=== PATIENT | female | born 1975 | race Caucasian/White ===

== ENCOUNTER 2017-03-19 10:19 | Emergency (ER) | payer MEDICAID ==
[~2017-03-19] VITALS: Ht 175.3 cm; Wt 85.0 kg
[~2017-03-19 10:19] MED LIST: FLAG500T PO; LORA10TA PO; Z.0.NO CURRENT MEDS; [UNRECOGNIZED DRUG - CODE] PO
[2017-03-19 10:21] VITALS: BP 143/93; PULSE 94; RESP 20; TEMP 97.9; O2SAT 95
[2017-03-19] MEDS ORDERED: FLUORESCEIN SOD 1 MG STRIP LEFT EYE ONE (10:30)
[2017-03-19] MEDS ORDERED: PROPARACAINE HCL 0.5% OPHT SOLN 15 ML BTL LEFT EYE ONE (10:30)
[2017-03-19] MEDS ORDERED: ERYTOIN10 LEFT EYE (10:48)
[2017-03-19] MEDS ORDERED: IBUP-232 PO (10:48)
--- NOTE | 2017-03-19 10:53 | PD ---
HPI Chief Complaint: Eye Problems/Injury Time Seen by Provider: 10:48 Travel History International Travel<30 days: No Contact w/Intl Traveler<30days: No Traveled to known affect area: No History of Present Illness HPI 41-year-old Nepalese female presents the emergency Department with sudden onset of left thigh pain after removing her contacts that she slipped his last evening. Patient states she normally does not sleep in her contacts but that last evening. She has mild blurring of vision in the left eye and tearing. No fever, chills, or other symptoms. Pain is 8 out of 10 in the left eye. She has no known drug allergies. PFSH Past Medical History Cardiovascular Problems: Yes (htn) Diabetes: Yes ?: Not Social History Alcohol Use: No Tobacco Use: No Substance Use: No Allergies-Medications (Allergen,Severity, Reaction): Coded Allergies: No Known Allergies (Verified , 03/19/17) Reported Meds & Prescriptions Reported Meds & Active Scripts Active Flagyl (Metronidazole) 500 Mg Tab 500 Mg PO BID Eq Allergy Relief D 24 Ho (Loratadine & Pseudoephedrine) D 24 Hr Tab 1 Tab PO DAILY Eq Allergy Relief D 24 Ho (Loratadine & Pseudoephedrine) D 24 Hr Tab 1 Tab PO DAILY Reported Claritin 10 Mg Tab (Loratadine) 10 Mg Tab 10 Mg PO DAILY No Current Meds (Miscellaneous Medication) Misc Review of Systems Except as stated in HPI: all other systems reviewed are Neg General / Constitutional: No: Fever Eyes: Positive: Blurred Vision, Photophobia, Redness, Foreign Body Sensation, Pain, Tearing, No: Diploplia, Drainage, Blind Spots, Visual changes, Blindness HENT: No: Headaches Cardiovascular: No: Chest Pain or Discomfort Respiratory: No: Shortness of Breath Gastrointestinal: No: Abdominal Pain Genitourinary: No: Dysuria Musculoskeletal: No: Pain Skin: No Rash Neurologic: No: Weakness Psychiatric: No: Depression Endocrine: No: Polydipsia Hematologic/Lymphatic: No: Easy Bruising Physical Exam Narrative GENERAL: Patient is in moderate distress. SKIN: Warm and dry. Normal color. Normal turgor. HEAD: Atraumatic. Normocephalic. EYES: Pupils equal and round. No scleral icterus. Moderate injection and tearing without drainage. Proparacaine drops were applied and fluorescein dye is applied. Wood's lamp exam shows fairly large moderate corneal abrasion to the left lower lateral cornea at the 4 o'clock position. There is no foreign body. ENT: No nasal bleeding or discharge. Mucous membranes pink and moist. Pharynx is clear. Airway is patent. NECK: Trachea midline. Supple. CARDIOVASCULAR: Regular rate and rhythm. RESPIRATORY: No accessory muscle use. MUSCULOSKELETAL: Extremities without clubbing, cyanosis, or edema. No obvious deformities. NEUROLOGICAL: Awake and alert. No obvious cranial nerve deficits. Motor grossly within normal limits. Five out of 5 muscle strength in the arms and legs. Normal speech. PSYCHIATRIC: Appropriate mood and affect; insight and judgment normal. Data Data Last Documented VS Vital Signs Date Time Temp Pulse Resp B/P Pulse Ox O2 Delivery O2 Flow Rate FiO2 03/19/17 10:21 97.9 94 20 143/93 95 Orders Proparacaine 0.5% Opth Soln (Alcaine 0.5 (03/19/17 10:30) Fluorescein Strip ([id number]-M-Pkugsb A.T.) (03/19/17 10:30) MDM Medical Decision Making Medical Screen Exam Complete: Yes Emergency Medical Condition: Yes Differential Diagnosis Foreign body. Conjunctivitis. Corneal abrasion. Narrative Course Proparacaine drops are placed in the eye with good anesthetic effect. Fluorescein dye was applied and Wood lamp exam performed. Patient has a fairly large corneal abrasion to the left lower lateral cornea Patient treated with erythromycin ophthalmic ointment every 4 hours while awake for the next 7 days. Patient is given ibuprofen 600 mg 4 times a day #40. Patient is to refrain from wearing contacts for 2 weeks. Patient should follow-up with her primary care physician or tombstone polisher if symptoms persist or worsen. Referrals: [facility] [employer] Primary Care Physician Patient Instructions: Corneal Abrasion (ED), General Instructions Departure Forms: Work Release Enter return to work date: Mar 20, 2017 Additional Instructions: Patient has a fairly large corneal abrasion to the left lower lateral cornea Patient treated with erythromycin ophthalmic ointment every 4 hours while awake for the next 7 days. Patient is given ibuprofen 600 mg 4 times a day #40. Patient is to refrain from wearing contacts for 2 weeks. Patient should follow-up with her primary care physician or tombstone polisher if symptoms persist or worsen. Med/Other Pt SpecificInfo: Prescription(s) given Scripts Ibuprofen 600 Mg [id number] Mg PO Q6H PRN (Pain/Inflammation) #40 TAB Prov:Joaquina Núñez MD 03/19/17 Erythromycin Opth Oint 5 Mg/Gm Oint1 Applic LEFT EYE QID #1 TUBE Prov:Joaquina Núñez MD 03/19/17 Disposition: 01 DISCHARGE HOME Condition: Stable Rich Ferrari Mar 19, 2017 10:53
== END 2017-03-19 11:10 | disposition home or self-care (01) ==
LOC: NEPK 10:19
DX: H18.822 Corneal disorder due to contact lens, left eye (principal); I10 Essential (primary) hypertension; E11.9 Type 2 diabetes mellitus without complications
CPT/HCPCS: 99283